=== PATIENT | female | born 1950 | race Two or more races ===

== ENCOUNTER 2017-07-02 16:11 | Emergency (ER) | payer OTHER ==
[2017-07-02] MEDS: DIAZEPAM 5 MG/ML SYG IM (23:19)
[2017-07-02] MEDS: KETOROLAC 30 MG INJ IM (23:19)
== END 2017-07-03 03:04 | disposition home or self-care (01) ==
LOC: E/R 07-03 03:04
DX: M54.9 Dorsalgia, unspecified (principal); I10 Essential (primary) hypertension; E03.9 Hypothyroidism, unspecified; Z79.82 Long term (current) use of aspirin; Z96.641 Presence of right artificial hip joint
CPT/HCPCS: 72131; 96372; 99285-25